=== PATIENT | female | born 1960 | race Caucasian/White ===

== ENCOUNTER 2017-03-29 09:00 | Inpatient (IN) ==
--- NOTE | 2017-03-28 09:41 | Anesthesia Evaluation PreOp ---
Date of Encounter: 03/29/17 Time of Encounter: 09:44 - Past History Planned Operation: right TKA Cardiac History: Denies any Significant Hx Pulmonary History: Denies Any Significant HX MECHANICAL DRAFTER History: Denies Any Significant HX Other Medical History: Denies Any Significant HX, Other (obesity) Anesthesia History: Past Anesthesia (ORIF toe, left TKA, hernia, appy), Problems (PONV) Alcohol Use: none Drug use: none Medications and Allergies Diclofenac Sodium 25 mg PO DAILY 10/16/16 [History] HYDROcodone/Acet 7.5/325 mg [[place] 7.5-325 mg] 1 tab PO Q12H PRN 03/29/17 [ History] 3 Allergy/AdvReac Type Severity Reaction Status Date / Time No Known Allergies Allergy Verified 03/29/17 09:33 - Meds/Allergy Pre-op Review Medications Reviewed: Yes Allergies Reviewed: Yes Beta Blockers on Current Med List: No Anesthesia Results - Labs Laboratory Tests 03/15/17 03/15/17 16:20 16:20 Hgb 12.9 Hct 39.8 Plt Count 274 PT 10.4 INR 1.0 APTT 29.3 Anesthesia Exam Selected Entries 03/29/17 09:20 Temperature 98.2 F Pulse Rate 76 Respiratory Rate 18 Blood Pressure 150/83 O2 Sat by Pulse Oximetry 96 Weight: 127kg NPO (# of Hours): 8 Pain Scale: 0 Pain Scale Used: Numeric (1 - 10) - HEENT Pupil (Motor): EOMI Mallampati: III Teeth: Normal Oral Opening: Greater than 3 - MECHANICAL DRAFTER LOC: Oriented MECHANICAL DRAFTER Motor: Normal RUE, Normal LUE, Normal RLE, Normal LLE, Normal Face MECHANICAL DRAFTER Sensory: Normal: RUE, LUE, RLE, LLE, Face - Cardiac Rhythm: Regular Murmur: None - Pulmonary Breath Sounds: bilateral Clear Respiratory Effort: Symmetrical Anesthesia Assess/Plan ASA Score: 3 Modified [place] Scale for Level of Consciousness: Cooperative, oriented, and tranquil Anesthetic Plan: General (with block) Monitoring Plan: Standard Monitors Recovery Plan: PACU (discussed risks/benefits of GA/regional. Agrees to proceed)
--- NOTE | 2017-03-28 21:26 | Discharge Summary ---
<Iza Montes - Last Filed: 03/29/17 14:25> Date of Encounter: 03/29/17 - Discharge Diagnosis (1) Arthritis of knee, right Priority: Primary Status: Chronic (2) Status post total knee replacement, right Priority: Primary Status: Acute (3) Obesity Priority: Secondary Status: Chronic Qualifiers: Obesity type: due to excess calories Obesity classification: adult class 3 (BMI >= 40) Serious obesity comorbidity presence: without serious comorbidity Body mass index: BMI 45.0-49.9 (4) Chronic pain Priority: Secondary Status: Chronic Comments: [place] 7.5/325BID - Chronic pain medication - will hold. Qualifiers: Chronic pain type: other chronic pain Qualified Code(s): G89.29 - Other chronic pain (5) History of gastric bypass Priority: Secondary Status: Chronic - Discharge Medications Prescriptions: Aspirin Enteric Coated [Aspirin EC] 325 mg PO DAILY #21 tablet. OxyCODONE Immed Rel [Roxicodone 5 MG] 5 mg PO Q6H PRN #28 tablet PRN Reason: Pain Home Medications: Diclofenac Sodium 25 mg PO DAILY 10/16/16 [History] Aspirin Enteric Coated [Aspirin EC] 325 mg PO DAILY #21 tablet. 03/29/17 [Rx] OxyCODONE Immed Rel [Roxicodone 5 MG] 5 mg PO Q6H PRN #28 tablet 03/29/17 [Rx] Allergies/Adverse Reactions: 3 Allergy/AdvReac Type Severity Reaction Status Date / Time No Known Allergies Allergy Verified 03/29/17 09:33 Primary care physician: Festus Villasenor Jr, MD - Patient Status Disposition: Home, Self-Care Condition: Good - Discharge Instructions Follow Up With: Manior Alvarado MD [Partnered Physician] - 04/28/17 5:50 pm Iza Montes PAC [Physician Rubber Goods Inspector] - 04/16/17 9:15 am Festus Villasenor Jr, MD [Primary Care Provider] - - Hospital Course Hospital course: Ms. Cooney is a 56 year old female - Time Spent with Patient Total time spent providing and/or coordinating discharge services: <Mainor Alvarado - Last Filed: 03/31/17 08:55> Date of Encounter: 03/31/17 Time of Encounter: 08:54 - Discharge Diagnosis (1) Arthritis of knee, right Priority: Primary Status: Chronic (2) Status post total knee replacement, right Priority: Primary Status: Acute (3) Obesity Priority: Secondary Status: Chronic Qualifiers: Obesity type: due to excess calories Obesity classification: adult class 3 (BMI >= 40) Serious obesity comorbidity presence: without serious comorbidity Body mass index: BMI 45.0-49.9 Qualified Code(s): E66.09 - Other obesity due to excess calories; Z68.42 - Body mass index (BMI) 45.0-49.9, adult; Z68.42 - Body mass index (BMI) 45.0-49.9, adult; Z68.42 - Body mass index (BMI) 45.0- 49.9, adult; Z68.42 - Body mass index (BMI) 45.0-49.9, adult (4) Chronic pain Priority: Secondary Status: Chronic Qualifiers: Chronic pain type: other chronic pain Qualified Code(s): G89.29 - Other chronic pain (5) History of gastric bypass Priority: Secondary Status: Chronic (6) Acute blood loss anemia Priority: Primary Status: Acute Primary care physician: Festus Villasenor Jr, MD - Patient Status Functional capacity at discharge: uses cane/walker Overall status at discharge: patient is progressing back to baseline - Hospital Course Hospital course: Ms. Cooney is a 56 year old female Status post right total knee replacement patient's acute blood loss anemia hematocrit for transfusion 25 received 2 units. The patient had an uneventful postoperative course. They received antibiotics and physical therapy and were discharged in stable condition. There will follow -up in the office in 2 weeks. - Time Spent with Patient Total time spent providing and/or coordinating discharge services:
[2017-03-29] MEDS ORDERED: Ethanol\\Acetic Acid\\Na Ace\\Ben 1,000 ML IRRIG.SOLN IR ONE (09:28)
[2017-03-29] MEDS ORDERED: CeFAZolin Pre 3,000 MG/100 ML 3,000 MG/100 ML BAG IVPB ONE (09:31)
[2017-03-29] MEDS ORDERED: Scopolamine Patch 1.5 MG PATCH.TD72 TD ONE (09:48)
--- NOTE | 2017-03-29 09:55 | History & Physical Report ---
Date of Encounter: 03/29/17 Time of Encounter: 09:55 24 Hour HP Update - Instructions Instructions: If the History and Physical is less than 30 days old and was completed prior to A.M. admission and or procedure and has NOT been updated on calendar day of procedure please complete this update prior to performing procedure. - Update Patient reports changes in Medical Condition: No Changes in examination, assessment, or condition: No Changes in Medication: No Preop tests/diagnostics Reviewed: Yes Surgery Remains Indicated: Yes Consent for Planned Operative Procedure(s) Verified: Yes - Pre-Operative Checklist Preoperative Checklist Indicated: No Prophylactic Antibiotic Ordered: Yes Is VTE Prophylaxis Indicated?: Yes
[2017-03-29] MEDS ORDERED: Ondansetron 4 MG/2 ML VIAL ONE (10:16)
[2017-03-29] MEDS ORDERED: *HR* Propofol 200 MG/20 ML VIAL IVP ONE ×2 (10:16→11:53)
[2017-03-29] MEDS ORDERED: Lidocaine -MPF 2% 2 ML VIAL ONE (10:16)
[2017-03-29] MEDS ORDERED: *HR* FentaNYL (PF) 100 MCG/2 ML VIAL ONE ×2 (10:16→12:07)
[2017-03-29] MEDS ORDERED: *HR* Midazolam HCl 2 MG/2 ML VIAL ONE ×2 (10:16→12:04)
[2017-03-29] MEDS: Ringers Solution, Lactated 1,000 ML IVC SCH ×3 (10:29→17:04)
[2017-03-29] MEDS ORDERED: Bupivacaine/Clonidine Syringe 1 EACH SYRINGE ONE ×2 (11:24→11:28)
[2017-03-29] MEDS ORDERED: Propofol 500 MG/50 ML INFUS..BTL ONE ×3 (11:56→12:42)
[2017-03-29] MEDS ORDERED: Dexamethasone 4 MG/ML VIAL ONE (12:14)
[2017-03-29] MEDS ORDERED: Ketamine *HR* 500 MG/10 ML MDV ONE (12:19)
--- NOTE | 2017-03-29 12:50 | Orthopedic Operative Note ---
Date of procedure: 03/29/17 Pre-op diagnosis: Right knee arthritis Post-op diagnosis: same Procedure: Procedure: Right Total knee replacement Estimated blood loss: 500 cc Hardware: Metal and polyethylene replacement: Biomet Femur: 70, 20 x 120 stem Tibia: 75 18x80 Yvette insert: 14 Patella: 37 Exam Under anesthesia: Loss full extension 10 degrees full flexion Procedural Notes: Grade 4 arthritic changes all 3 compartments Operative procedure: The patient was brought to the operating room and placed on the operating room table. After general anesthesia was administered the operative knee was examined. Findings were noted in the exam under anesthesia. The operative extremity was prepped and draped in sterile surgical fashion. The patient received IV antibiotics prior to skin incision. A standard midline incision was made centered over the patella. The incision was made through the skin and subcutaneous tissue. A medial parapatellar tendon approach was performed. Care was taken to preserve tissue along the medial aspect of the patella. And to protect the patella tendon. The deep MCL was released off the medial tibia. The infra patella fat pad was excised. Knee was brought into flexion. The entry hole was made for the intramedullary femoral guide. The guide was seated in 6 degrees of valgus. Anterior cut was made followed by the distal cut. The PCL the medial and the lateral menisci were excised. The tibia was subluxed forward. The entry hole was made for the intramedullary tibial guide. Guide was seated to resect 2 mm off the more abnormal side. The knee was brought into flexion the distal femur was sized to a 70. The femur was first reamed to a 20 x 120 The femoral guide was seated, the anterior cut was made followed by the posterior condylar cut, followed by the chamfer cuts. The finishing guide was seated the box cut was made. Trial had good fit and fixation The tibia was sized to a an 75 The tibia was first reamed 18 x 80 Trial reduction revealed full extension no varus valgus instability with the appropriate 14 insert. The patella was everted and cut was made at the level of the insertion of the quadriceps and patella tendon. The patella was sized to a 37 the guide was seated and the lug holes are drilled. Trial reduction revealed excellent patella tracking. All trial components were removed all bony surfaces were irrigated. Components were assembled on the back table. The femur was cemented first followed by the tibia. The 14 Yvette was seated and secured. The knee was brought into full extension. The patella was cemented and held in place with the patellar holding clamp. After the cement had hardened, the knee sat for 2 minutes with a Betadine saline solution. The PA close the knee. The knee was then irrigated out with 2 L of pulse irrigation. The extensor mechanism was closed with #2 FiberWire suture and #2 PDS suture. The subcutaneous tissue was then irrigated and closed deep with #1 PDS suture superficially with 0 PDS suture and skin was closed with skin trevin The patient was then placed in a sterile dressing and a postoperative brace extubated and transferred to recovery room in stable condition. Anesthesia: MISHA Surgeon: Mainor Alvarado Show Host/Hostess: Gina Hazel Condition: stable Disposition: PACU
[2017-03-29] MEDS ORDERED: *HR* HYDROmorphone (PF) 1 MG/ML SYRINGE ONE (13:53)
[2017-03-29] MEDS: *HR* HYDROmorphone (PF) 1 MG/ML SYRINGE IVP PRN ×2 (13:54→14:08)
[2017-03-29 14:08] LABS: Hematocrit 31.2 % (35.3-44.9); Hemoglobin 10.3 g/dL (11.5-15.4)
[2017-03-29] MEDS ORDERED: Naloxone 0.4 MG/ML INJ IVP PRN (14:21)
[2017-03-29] MEDS ORDERED: Ondansetron 4 MG/2 ML VIAL IVP PRN (14:21)
[2017-03-29] MEDS ORDERED: *HR* OxyCODONE Immed Rel 5 MG TABLET PO PRN (14:21)
--- NOTE | 2017-03-29 14:24 | Anesthesia Evaluation Post Op ---
Date of Encounter: 03/29/17 Time of Encounter: 14:22 - Vital Signs Vital Signs: vss - Lungs Lungs: Clear Ascult./Percussion - Airway Airway: Non-obstructed - Cardiovascular Baseline Rhythm - Mental Status Mental Status: Alert & Oriented, Answers Appropriately - Pain Pain Scale used: [place] (Faces) - Nausea Vomiting Nausea Vomiting: Not Present - Hydration Hydration: Ice chips - Discharge PostOp Status: Transfer Patient to floor
--- NOTE | 2017-03-29 14:29 | Anesthesia Procedures ---
Date of Encounter: 03/29/17 Time of Encounter: 11:15 Procedures: Anesthesia - Nerve Block Procedure Date: 03/29/17 Time: 11:15 Surgical Procedure: right total knee Checklist: Correct Patient Identifier, Correct procedure, History checked Correct side: Right Monitor Applied: BP, Pulse Oximetry Supplemental Oxygen via Nasal Cannula (L/min): 2 Sedation: Versed (mg): 2 Sedation: Fentanyl (mcg): 2 Indication: Post Op Analgesia Block Type: Femoral, Other (ipack) Catheter placed: No Sterile Technique: Yes Ultrasound used: Yes Anatomy identified: Yes Visual spread of Local: Yes Neuro Stimulation: No Blood on Needle Aspiration: No Smooth Injection of Local: Yes Pain with Injection of Local: No Prep: Chlorhexadine Needle: 22 x 50 mm Stimuplex, 21 x 100 mm Stimuplex Volume (cc): 80 Number of Attempts: 1 Complications: None/effective block Vitals: vss though out, block per request of surgeon.
[2017-03-29] MEDS: *HR* OxyCODONE Immed Rel 5 MG TABLET PO PRN ×2 (15:15→21:56)
[2017-03-29] MEDS ORDERED: ceFAZolin 3,000 MG in D5% in Water 100 ML IVPB SCH ×2 (16:00→20:00)
--- NOTE | 2017-03-29 16:47 | Physician Discharge Referral ---
Home Health/Hosp Referral Info Transfer to: Home Health Attending Provider: Provider in Charge Post Discharge: PCP - Diagnosis (1) Arthritis of knee, right Priority: Primary Status: Chronic (2) Status post total knee replacement, right Priority: Primary Status: Acute (3) Obesity Priority: Secondary Status: Chronic (4) Chronic pain Priority: Secondary Status: Chronic (5) History of gastric bypass Priority: Secondary Status: Chronic - Respiratory Orders None Smoking Cessation: Smoking cessation has been advised. For more information, call the [place] Tobacco Quit Line at 8-161-VZJY-NOW. - Diet/Nutrition Diet/Nutrition Orders: Regular - Activity Activity Orders: Up ad nsesa, Ambulate, Chair, Walker - Services Needed Following services are medically necessary services: Nursing, Home Health Aide, Physical Therapy, Occupational Therapy Home Care Orders: Opsite dressing, leave intact until first post-operative visit. If dressing becomes >50% saturated, contact office, remove dressing and place appropriate dressing in its place. Do not allow for dressing to get wet. [place] and dressing in place, plan to remove at POD#14-16. PT: Total Joint Precautions x 6 weeks Apply ICE/cold therapy wrap 3-6x/day for 20 minutes at a time. Encourage ambulation throughout the day and incentive spirometer 10x/hour. Elevate affected extremity above heart as tolerated. Brace: Knee immobilizer during activity and ambulation. Restrictions: No Knee ROM, No CPM Allowing incision to heal. - Transfer Medications Prescriptions: Aspirin Enteric Coated [Aspirin EC] 325 mg PO DAILY #21 tablet.dr Alessandra Bergeron Rel [Roxicodone 5 MG] 5 mg PO Q6H PRN #28 tablet PRN Reason: Pain Home Medications: Diclofenac Sodium 25 mg PO DAILY 10/16/16 [History] Aspirin Enteric Coated [Aspirin EC] 325 mg PO DAILY #21 tablet. 03/29/17 [Rx] OxyCODONE Immed Rel [Roxicodone 5 MG] 5 mg PO Q6H PRN #28 tablet 03/29/17 [Rx] Allergies/Adverse Reactions: 3 Allergy/AdvReac Type Severity Reaction Status Date / Time No Known Allergies Allergy Verified 03/29/17 09:33 Certification: Further, I certify that my clinical findings support that this patient is homebound (i.e. absences from home require considerable and taxing effort and are for medical reasons or caodaism services or infrequently or short duration when for other reasons) because: Homebound Reason: Post-surgery restriction and or conditions limit ability to leave home, Leaving home requires considerable and taxing effort due to condition Attestation: My signature below is to certify that this patient is under my care and that I, or nurse practitioner, or a physician's educational assistant teacher working with me, has a face-to -face encounter with this patient.
--- NOTE | 2017-03-29 16:49 | Physician Discharge Referral ---
ExtendedCare Referral Info Transfer To: [facility] Provider in Charge: Provider in Charge after Transfer: PCP Institutional Level of Care: Skilled - Diagnosis (1) Arthritis of knee, right Priority: Primary Status: Chronic (2) Status post total knee replacement, right Priority: Primary Status: Acute (3) Obesity Priority: Secondary Status: Chronic (4) Chronic pain Status: Chronic (5) History of gastric bypass Priority: Secondary Status: Chronic Expected Duration of Placement: < 30 days Prognosis: Good Aware of Diagnosis: Patient Aware of Prognosis: Patient - Transfer Medications Prescriptions: Aspirin Enteric Coated [Aspirin EC] 325 mg PO DAILY #21 tablet. OxyERINDONNathaniel Immed Rel [Roxicodone 5 MG] 5 mg PO Q6H PRN #28 tablet PRN Reason: Pain Home Medications: Diclofenac Sodium 25 mg PO DAILY 10/16/16 [History] Aspirin Enteric Coated [Aspirin EC] 325 mg PO DAILY #21 tablet. 03/29/17 [Rx] OxyCODONE Immed Rel [Roxicodone 5 MG] 5 mg PO Q6H PRN #28 tablet 03/29/17 [Rx] Allergies/Adverse Reactions: 3 Allergy/AdvReac Type Severity Reaction Status Date / Time No Known Allergies Allergy Verified 03/29/17 09:33 - Respiratory Orders None Smoking Cessation: Smoking cessation has been advised. For more information, call the [place] Tobacco Quit Line at 1-580-ACYNNOW. - Ancillary Orders May use pressure relief devices daily prn, May go on KENNETH w/family/respon green party w /meds at nurse discretion PRN, May consult with Dentist, Human Factors Scientist, Twisting Frame Changer PRN - Mobility Orders Chair, Ambulate - Rehabiliation Orders Rehab Potential: Good Rehab Orders: Evaluation for Physical Therapy, Evaluation for Occupational Therapy Other: No knee flexion to allow for incisional healing. No CPM. Wear Immobilizer during ambulation and activity for 2-4 weeks. - Treatments Skin tear care topically daily PRN per policy List/Other: Opsite dressing, leave intact until first post-operative visit. If dressing becomes >50% saturated, contact office, remove dressing and place appropriate dressing in its place. Do not allow for dressing to get wet. [place]/Zipline dressing in place, plan to remove at POD#14-16. PT: Total Joint Precautions x 6 weeks Apply ICE/cold therapy wrap 3-6x/day for 20 minutes at a time. Encourage ambulation throughout the day and incentive spirometer 10x/hour. Elevate affected extremity above heart as tolerated. Brace: Knee immobilizer during ambulation and activity. No knee flexion. No CPM 2-4 weeks of knee restrictions to allow for soft tissue healing. - Diet Orders Regular CERTIFICATION: I certify that the transfer of the above named patient to an Extended Care Facility is necessary for the continuing treatment of the diagnosis listed. The above information is true and accurate reflection of patient's current condition. Confidential - Redisclosure prohibited without a patient's written consent.
[2017-03-29] MEDS: *HR* Enoxaparin 30 MG/0.3 ML SYRINGE SQ SCH (17:04)
[2017-03-29] MEDS ORDERED: *HR* Enoxaparin 30 MG/0.3 ML SYRINGE SQ SCH (18:00)
[2017-03-29] MEDS ORDERED: Sennosides 8.6 MG TABLET PO PRN (21:00)
[2017-03-29] MEDS ORDERED: MOM Conc 10 ML UD.LIQ PO PRN (21:00)
[2017-03-29] MEDS ORDERED: Temazepam 15 MG CAPSULE PO PRN (21:00)
[2017-03-29] MEDS: ceFAZolin 3,000 MG in Water for inj. (sterile) 30 ML IVP SCH (21:54)
[2017-03-30] MEDS: *HR* OxyCODONE Immed Rel 5 MG TABLET PO PRN ×4 (02:46→17:33)
[2017-03-30] MEDS: Ringers Solution, Lactated 1,000 ML IVC SCH (05:28)
[2017-03-30] MEDS: *HR* Enoxaparin 30 MG/0.3 ML SYRINGE SQ SCH ×2 (05:29→17:33)
[2017-03-30] MEDS: ceFAZolin 3,000 MG in Water for inj. (sterile) 30 ML IVP SCH (06:39)
--- NOTE | 2017-03-30 06:41 | Orthopedics Progress Note ---
Date of Encounter: 03/30/17 Time of Encounter: 06:40 - Assessment and Plan (1) Arthritis of knee, right Current Visit: No Status: Chronic (2) Status post total knee replacement, right Current Visit: No Status: Acute (3) Obesity Current Visit: No Status: Chronic Qualifiers: Obesity type: due to excess calories Obesity classification: adult class 3 (BMI >= 40) Serious obesity comorbidity presence: without serious comorbidity Body mass index: BMI 45.0-49.9 Qualified Code(s): E66.09 - Other obesity due to excess calories; Z68.42 - Body mass index (BMI) 45.0-49.9, adult; Z68.42 - Body mass index (BMI) 45.0-49.9, adult; Z68.42 - Body mass index (BMI) 45.0- 49.9, adult; Z68.42 - Body mass index (BMI) 45.0-49.9, adult (4) Chronic pain Current Visit: No Status: Chronic Qualifiers: Chronic pain type: other chronic pain Qualified Code(s): G89.29 - Other chronic pain (5) History of gastric bypass Current Visit: No Status: Chronic Subjective Interval history: Patient was seen this morning doing well without complaints. Afebrile vital signs stable. Operative extremity: Neurovascularly intact Dressing clean dry and intact Calves nontender Assessment and plan: Continue with postoperative care hematocrit 31 Objective Vital signs: Vital Signs Temp Pulse Resp BP Pulse Ox 03/30/17 06:37 98.7 F 84 16 122/70 96 03/30/17 00:26 97.7 F 57 17 107/59 94 03/29/17 19:03 97.4 F L 77 17 110/61 98 03/29/17 17:09 98.0 F 70 16 122/74 99 03/29/17 16:16 97.6 F 55 16 120/66 100 03/29/17 15:42 97.6 F 58 15 124/70 100 03/29/17 15:12 97.5 F L 57 15 131/70 100 03/29/17 14:37 97.6 F 58 16 118/75 98 03/29/17 14:24 97.2 F L 52 18 110/63 100 03/29/17 14:14 56 20 120/63 100 03/29/17 14:04 97.2 F L 57 18 122/66 98 03/29/17 13:54 56 20 121/74 99 03/29/17 13:44 57 22 118/62 99 03/29/17 13:34 97.6 F 64 22 118/71 97 03/29/17 11:35 68 149/86 100 03/29/17 11:18 64 163/87 100 03/29/17 09:40 98.2 F 76 18 150/83 96 03/29/17 09:20 98.2 F 76 18 150/83 96 Intake and Output 03/29/17 03/29/17 03/30/17 15:59 23:59 07:59 Intake Total 1000 / 1000 30 2099 / 2099 Output Total 500 / 500 300 / 300 Balance 500 / 500 -270 / -270 2099 Intake: IV Fluids 1000 / 1000 1000 / 1000 Lactated Ringers 1,000 ML @ 75 1000 / 1000 1000 / 1000 mls/hr IVC .[id number] SACHIN Rx#: [id number] Ancef 3,000 MG In Water for inj . (sterile) 30 ML @ 200 mls/hr IVP Q8H SACHIN Rx#:[id number] Oral 0 / 0 1100 / 1100 Output: Urine 0 / 0 300 / 300 Estimated Blood Loss 500 / 500 Other: # Voids 1 2 Weight 128.367 kg - Labs CBC & BMP: 03/29/17 13:46 Labs: Abnormal lab results Hgb 10.3 g/dL (11.5-15.4) L 03/29/17 13:46 Hct 31.2 % (35.3-44.9) L 03/29/17 13:46 - VTE Documentation of Mechanical Device: Venous foot pump, device Consult Discharge Plan - Plan Referrals: Festus Villasenor Jr, MD [Primary Care Provider] - Prescriptions: Aspirin Enteric Coated [Aspirin EC] 325 mg PO DAILY #21 tablet. OxyCODONE Immed Rel [Roxicodone 5 MG] 5 mg PO Q6H PRN #28 tablet PRN Reason: Pain
[2017-03-30 08:11] LABS: BUN/Creatinine Ratio 29 (6-26); Blood Urea Nitrogen 18 mg/dL (7-20); Carbon Dioxide 25 mEq/L (19-29); Chloride 104 mEq/L (98-109); Potassium 4.2 mEq/L (3.5-4.5); Sodium 137 mEq/L (136-145)
[2017-03-30 08:12] LABS: Calcium 8.4 mg/dL (8.6-10.8); Glucose 122 mg/dL (70-99); Hematocrit 26.7 % (35.3-44.9); Osmolality,Calculated 287 (280-300); eGFR For African Americans > 60 (> 60); eGFR For Non-African Americans > 60 (> 60)
[2017-03-30 08:13] LABS: Hemoglobin 8.7 g/dL (11.5-15.4)
[2017-03-30] MEDS: DICLOFENAC SODIUM 25 MG PO SCH (09:39)
[2017-03-30] MEDS: *HR* HYDROmorphone (PF) 1 MG/ML SYRINGE IVP PRN ×2 (12:11→21:26)
--- NOTE | 2017-03-30 14:53 | Event Note ---
Date of Encounter: 03/30/17 Time of Encounter: 14:52 PCR - Right TKR 03/30/17 - IMMOBILIZER during activity and ambulation, no CPM, No knee flexion to allow for soft tissue healing. POD#.1 Labs: Stable Patient seen at bedside. Pain control: Adequate. Holding Chronic pain medication - [place] 7.5/325mg BID. Participating in PT. All questions and concerns addressed. Educated on use of incentive spirometer, ambulation, and hydration. Patient educated on post-operative restrictions and care. Addressed: See above D/C plan: HH, continuity placed ECF continuity also placed.
[2017-03-31 04:40] LABS: Hematocrit 24.8 % (35.3-44.9); Hemoglobin 8.3 g/dL (11.5-15.4)
[2017-03-31 04:52] LABS: BUN/Creatinine Ratio 29 (6-26); Blood Urea Nitrogen 17 mg/dL (7-20); Calcium 8.4 mg/dL (8.6-10.8); Carbon Dioxide 24 mEq/L (19-29); Chloride 102 mEq/L (98-109); Glucose 130 mg/dL (70-99); Osmolality,Calculated 283 (280-300); Sodium 135 mEq/L (136-145); eGFR For African Americans > 60 (> 60); eGFR For Non-African Americans > 60 (> 60)
[2017-03-31] MEDS: *HR* Enoxaparin 30 MG/0.3 ML SYRINGE SQ SCH ×2 (05:31→17:23)
[2017-03-31] MEDS ORDERED: Furosemide 20 MG/2 ML VIAL IVP ONE (06:01)
[2017-03-31] MEDS: *HR* OxyCODONE Immed Rel 5 MG TABLET PO PRN ×3 (08:30→17:23)
[2017-03-31] MEDS: DICLOFENAC SODIUM 25 MG PO SCH (08:31)
--- NOTE | 2017-03-31 08:56 | Orthopedics Progress Note ---
Date of Encounter: 03/31/17 Time of Encounter: 08:56 - Assessment and Plan (1) Arthritis of knee, right Current Visit: No Status: Chronic (2) Status post total knee replacement, right Current Visit: No Status: Acute (3) Obesity Current Visit: No Status: Chronic Qualifiers: Obesity type: due to excess calories Obesity classification: adult class 3 (BMI >= 40) Serious obesity comorbidity presence: without serious comorbidity Body mass index: BMI 45.0-49.9 Qualified Code(s): E66.09 - Other obesity due to excess calories; Z68.42 - Body mass index (BMI) 45.0-49.9, adult; Z68.42 - Body mass index (BMI) 45.0-49.9, adult; Z68.42 - Body mass index (BMI) 45.0- 49.9, adult; Z68.42 - Body mass index (BMI) 45.0-49.9, adult (4) Chronic pain Current Visit: No Status: Chronic Qualifiers: Chronic pain type: other chronic pain Qualified Code(s): G89.29 - Other chronic pain (5) History of gastric bypass Current Visit: No Status: Chronic (6) Acute blood loss anemia Current Visit: Yes Status: Acute Subjective Interval history: Patient was seen this morning doing well without complaints. Afebrile vital signs stable. Operative extremity: Neurovascularly intact Dressing clean dry and intact Calves nontender Assessment and plan: Continue with postoperative care hematocrit 25 transfuse 2 units discharged today Objective Vital signs: Vital Signs Temp Pulse Resp BP Pulse Ox 03/31/17 06:50 98.1 F 104 18 145/83 94 03/31/17 00:18 99.0 F 88 14 126/78 94 03/30/17 21:07 99.2 F 95 17 131/69 93 03/30/17 15:45 98.0 F 75 16 127/77 94 03/30/17 12:14 97.8 F 70 16 136/76 97 Intake and Output 03/30/17 03/31/17 03/31/17 23:59 07:59 15:59 Other: Meal Dinner Percent of Meal Consumed 90% # Voids 1 - Labs CBC & BMP: 03/31/17 03:45 03/31/17 03:45 Labs: Abnormal lab results Hgb 8.3 g/dL (11.5-15.4) L 03/31/17 03:45 Hct 24.8 % (35.3-44.9) L 03/31/17 03:45 Sodium 135 mEq/L (136-145) L 03/31/17 03:45 BUN/Creatinine Ratio 29 (6-26) H 03/31/17 03:45 Glucose 130 mg/dL (70-99) H 03/31/17 03:45 Calcium 8.4 mg/dL (8.6-10.8) L 03/31/17 03:45 - VTE Documentation of Mechanical Device: Venous foot pump, device Consult Discharge Plan - Plan Referrals: Mainor Alvardao MD [Partnered Physician] - 04/28/17 5:50 pm Iza Montes PAC [Physician Electronic Commerce Specialist] - 04/16/17 9:15 am Fetsus Villasenor Jr, MD [Primary Care Provider] - Prescriptions: Aspirin Enteric Coated [Aspirin EC] 325 mg PO DAILY #21 tablet.dr RamirezCODONNathaniel Immed Rel [Roxicodone 5 MG] 5 mg PO Q6H PRN #28 tablet PRN Reason: Pain
[2017-03-31] MEDS ORDERED: 0.9 % Sodium Chloride 250 ML ONE ×2 (10:12→13:20)
--- NOTE | 2017-03-31 12:32 | Event Note ---
Date of Encounter: 03/31/17 Time of Encounter: 13:32 PCR - Right TKR 03/30/17 - IMMOBILIZER during activity and ambulation, no CPM, No knee flexion to allow for soft tissue healing. POD#2 Labs: Stable Patient seen at bedside. Pain control: Adequate. Holding Chronic pain medication - [place] 7.5/325mg BID. Patient to have Oxycodone limited time from [facility] post-operatively. Participating in PT. All questions and concerns addressed. Educated on use of incentive spirometer, ambulation, and hydration. Patient educated on post-operative restrictions and care. Addressed: See above D/C plan: Home with HH per patient request; PT recommending ECF - patient declining aware of cautions. HH, continuity placed ECF continuity also placed.
[2017-03-31 17:38] VITALS: BP 175/79
== END 2017-03-31 18:35 | disposition home health service (06) | DRG 470 ==
LOC: SAMDAY 09:00 → 3NENU 14:24
PROVIDERS: ADMIT Orthopaedic Surgery; ATTEND Orthopaedic Surgery